=== PATIENT | male | born 1985 | race Two or more races ===

== ENCOUNTER 2018-11-30 00:49 | Inpatient (IN) | payer OTHER ==
[~2018-11-30] VITALS: Ht 195.6 cm; Wt 163.3 kg
[2018-11-30 03:11] VITALS: BP 149/96
[2018-11-30 04:00] VITALS: BP 116/63
[2018-11-30] MEDS ORDERED: MAG HYDROX/AL HYDROX/SIMETH 30 ML UDC PO PRN (04:00)
[2018-11-30] MEDS ORDERED: MAGNESIUM HYDROXIDE 30 ML UDC PO PRN (04:00)
[2018-11-30] MEDS ORDERED: HYDROCODONE/APAP 5/325MG 1 EACH TABLET PO PRN (04:00)
[2018-11-30] MEDS ORDERED: ONDANSETRON HCL/PF 4 MG/2 ML VIAL IVP PRN (04:00)
[2018-11-30] MEDS ORDERED: Z GUARD REMEDY 2 OZ OINT TP PRN (04:00)
[2018-11-30] MEDS ORDERED: ACETAMINOPHEN 325 MG TABLET PO PRN (04:00)
[2018-11-30] MEDS: IV NS 0.9% 1,000 ML IV PRN ×2 (04:13→16:07)
--- NOTE | 2018-11-30 05:47 | NUR ---
RN NOTES ADMITTED A 33 YR OLD MALE FROM [facility] VIA AMBULANCE ON A STRETCHER ACCOMPANIED BY 3 WHITE WASHER AT 0205 WITH DIAGNOSIS OF DEHYDRATION AND ACUTE RENAL FAILURE. IN NO APPARENT DISTRESS, 02SAT 99% ON ROOM AIR TOLERATING WELL. ALERT AND ORIENTED. VERBALLY ABLE TO COMMUNICATE NEEDS. AMBULATORY. NO COMPLAINT OF PAIN OR DISCOMFORT. VITAL SIGNS WITHIN NORMAL LIMITS. SKIN ASSESSMENT DONE. CALLED MD, ORDERS RECEIVED. KEPT CLEAN AND DRY. NEEDS ATTENDED.
[2018-11-30 06:17] LABS: BASOPHILS % (AUTO) 0.4 % (0.0-2.0); HEMATOCRIT 40 % (39-51); LYMPHOCYTES # (AUTO) 3.2 /CMM (0.8-4.8); LYMPHOCYTES % (AUTO) 40.4 % (20.0-44.0); MEAN CORPUSCULAR HGB CONC 33 g/dl (31.0-36.0); MEAN CORPUSCULAR VOLUME 84 fL (80-96); MONOCYTES # (AUTO) 0.7 /CMM (0.1-1.30); MONOCYTES % (AUTO) 9.2 % (2.0-12.0); NEUTROPHILS # (AUTO) 3.9 /CMM (1.8-8.9); PLATELET COUNT (AUTO) 249 /CMM (150-450); RED BLOOD CELL COUNT(AUTO) 4.79 MIL/uL (4.5-6.0); WHITE BLOOD COUNT (AUTO) 7.9 K/uL (4.3-11.0)
[2018-11-30 06:41] LABS: ALBUMIN 3.2 g/dL (3.4-5.0); BILIRUBIN,TOTAL 0.6 mg/dL (0.2-1.0); CALCIUM, SERUM 8.4 mg/dL (8.5-10.1); CREATININE 1.3 mg/dL (0.6-1.3); POTASSIUM 4.1 mmol/L (3.5-5.1); TOTAL PROTEIN, SERUM 7.1 g/dL (6.4-8.2)
--- NOTE | 2018-11-30 07:35 | NUR ---
RN NOTE: RECEIVED PATIENT IN BED, ASLEEP BUT AROUSABLE WITH VERBAL CUES. RESPIRATION EVEN AND UNLABORED SATURATING 98% IN ROOM AIR. AFEBRILE. SKIN WARM TO TOUCH. BED ON LOWEST POSITION AND LOCKED AT ALL TIMES. ON MULTI CRAFT MAINTENANCE TECHNICIAN SR HR= 70. PATIENT DENIED FEELING WEAK AT THIS TIME. (L) AC 20G IV SITE NOTED INTACT AND PATENT INFUSING NS@ 100ML/HR NOTED BEEPING ONCE IN AWHILE DUE TO POSITIONING AND EDUCATED THE PATIENT TO TRY TO LEAVE HIS (L) ARM STRAIGHT. PATIENT AGREED AND UNDERSTOOD. CALL LIGHT WITHIN REACH. NEEDS ANTICIPATED.
[2018-11-30 08:00] VITALS: BP 134/88
[2018-11-30 12:00] VITALS: BP 140/90
--- NOTE | 2018-11-30 15:20 | NUR ---
RN NOTE: SHAYAN SUÁREZ DNP WAS PRESENT IN THE ROOM AND SPOKE WITH THE PATIENT REGARDING HIS PLAN OF CARE.
[2018-11-30 16:00] VITALS: BP 135/83
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
--- NOTE | 2018-11-30 19:26 | NUR ---
RN NOTE: BEDSIDE REPORT WAS GIVEN TO PM SHIFT NURSE FOR CONTINUITY OF CARE. PATIENT REMAINED ON IV FLUID HYDRATION.
--- NOTE | 2018-11-30 19:30 | NUR ---
MANAGER DIESEL NOTE: RECEIVED PT ON BED ALERT AND ORIENTED X4. ABLE TO MAKE NEEDS KNOWN. NO APPARENT DISTRESS NOTED AT THIS TIME. NO COMPLAINTS OF PAIN OR DISCOMFORT AT THIS TIME. ON ROOM AIR, BREATHING EVEN AND UNLABORED WITH NORMAL RESPIRATIONS. ON TELE MONITOR SINUS RHYTHM HR 86 BPM. IV ON LEFT ANTECUBITAL #20 INTACT AND PATENT, IVF INFUSING WELL. KEPT CLEAN, DRY AND COMFORTABLE. CALL LIGHT PLACED WITHIN REACH. SAFETY AND FALL PRECAUTIONS OBSERVED AND MAINTAINED. WILL CONTINUE TO MONITOR PT
[2018-11-30 20:00] VITALS: BP 152/73
[2018-12-01] VITALS: BP 140/90
[2018-12-01 04:00] VITALS: BP 128/78
[2018-12-01] MEDS: IV NS 0.9% 1,000 ML IV PRN ×3 (04:40→16:07)
--- NOTE | 2018-12-01 07:12 | NUR ---
TALENT SPECIALIST NOTE: NO CHANGES NOTED THROUGHOUT THE SHIFT. NO APPARENT DISTRESS NOTED. DENIES PAIN AND DISCOMFORT AT THIS TIME. NO SOB NOTED. SINUS RHYTHM ON TELE MONITOR HR 60 BPM. IV ON LEFT ANTECUBITAL #20 INTACT AND PATENT, IVF INFUSING WELL. KEPT CLEAN, DRY AND COMFORTABLE. SAFETY AND FALL PRECAUTIONS OBSERVED AND MAINTAINED. ENDORSED TO DAY SHIFT RN FOR CONTINUITY OF CARE.
--- NOTE | 2018-12-01 07:15 | NUR ---
RN OPENING NOTES RECEIVED PATIENT RESTING IN BED COMFORTABLY, DENIES ANY PAIN OR DISCOMFORT AT THIS TIME. HE IS AOX4, VERBAL, AND AMBULATORY. HE IS ON RA, TOLERATING WELL, SHOWS NO S/SX OF RESP DISTRESS OR SOB. IV IS PATENT AND INTACT, INFUSING NS AT 100 ML/HR. SKIN IS INTACT, WOUND ON LEFT LOWER LEG DRESSING INTACT. SAFETY MEASURES HAVE BEEN IMPLEMENTED, CALL LIGHT IS WITHIN REACH, BED IS IN LOWEST AND LOCKED POSITION, SIDE RAILS UP X2, WILL CONTINUE TO MONITOR FOR ANY CHANGES.
[2018-12-01 07:45] LABS: BASOPHILS % (AUTO) 0.4 % (0.0-2.0); HEMATOCRIT 41 % (39-51); HEMOGLOBIN 13.1 g/dL (13.5-17.5); LYMPHOCYTES # (AUTO) 2.4 /CMM (0.8-4.8); LYMPHOCYTES % (AUTO) 49.4 % (20.0-44.0); MEAN CORPUSCULAR HGB CONC 32 g/dl (31.0-36.0); MEAN CORPUSCULAR VOLUME 84 fL (80-96); MONOCYTES # (AUTO) 0.4 /CMM (0.1-1.30); MONOCYTES % (AUTO) 8.1 % (2.0-12.0); NEUTROPHILS # (AUTO) 1.9 /CMM (1.8-8.9); NEUTROPHILS % (AUTO) 40.1 % (43.0-81.0); PLATELET COUNT (AUTO) 218 /CMM (150-450); RED BLOOD CELL COUNT(AUTO) 4.91 MIL/uL (4.5-6.0); WHITE BLOOD COUNT (AUTO) 4.9 K/uL (4.3-11.0)
[2018-12-01 07:48] LABS: CALCIUM, SERUM 8.3 mg/dL (8.5-10.1); CREATININE 1.1 mg/dL (0.6-1.3); MAGNESIUM 1.7 mg/dL (1.8-2.4); PHOSPHORUS 3.8 mg/dL (2.5-4.9)
[2018-12-01 08:00] VITALS: BP 132/99
[2018-12-01] MEDS: Magnesium 1GM/D5W 100ML PREMIX 100 ML IV SCH ×2 (11:26→12:22)
[2018-12-01 12:00] VITALS: BP 133/90
[2018-12-01 16:00] VITALS: BP 141/83
--- NOTE | 2018-12-01 18:10 | NUR ---
RN NOTES PT HAS BEEN DISCHARGED. HE IS IN STABLE CONDITION, KIDNEY FUNCTIONS IMPROVED, HYDRATION LEVELS IMPROVED. IV SITE WAS REMOVED. BELONGINGS LIST WAS CHECKED OFF. EXIT CARE INSTRUCTIONS AND INFORMATION WERE PROVIDED. VERBAL INSTRUCTIONS PROVIDED TO PT AND HIS MOTHER. DRESSING ON LOWER LEFT LEG WAS CHANGED. PT LEFT THE UNIT WALKING, NO ASSISTANCE NECESSARY.
== END 2018-12-01 18:10 | disposition home or self-care (01) | DRG 557 ==
LOC: TELE1 01:56 → MEDSG1 12-01 12:00
PROVIDERS: ADMIT Hospitalist; ATTEND Hospitalist
DX: M62.82 Rhabdomyolysis (principal); N17.0 Acute kidney failure with tubular necrosis; Z68.41 Body mass index [BMI] 40.0-44.9, adult; I87.312 Chronic venous hypertension (idiopathic) with ulcer of left lower extremity; L97.829 Non-pressure chronic ulcer of other part of left lower leg with unspecified severity; E86.0 Dehydration; Z86.718 Personal history of other venous thrombosis and embolism; Z86.711 Personal history of pulmonary embolism; Z83.3 Family history of diabetes mellitus; E66.01 Morbid (severe) obesity due to excess calories; E83.42 Hypomagnesemia; R73.03 Prediabetes; Z71.3 Dietary counseling and surveillance
CPT/HCPCS: 36415; 80048-TC; 80053-TC; 80061-TC; 82550-TC; 83735-TC; 84100-TC; 85025-TC; 87081-TC; A4217; G0378; J3475; J7030; J7040; J7050